=== PATIENT | female | born 1970 | race Caucasian/White ===

== ENCOUNTER 2019-06-16 12:26 | Emergency (ER) | payer OTHER, SELFPAY ==
[2019-06-16 12:32] VITALS: BP 117/81; PULSE 108; RESP 20; TEMP 36.5; O2SAT 99
--- NOTE | 2019-06-16 12:56 | ED.SKABFB ---
HPI - Skin/Abscess/Foreign Bdy General Chief complaint: Skin/Abscess/Foreign Body Stated complaint: Cellulitis Time Seen by Provider: 06/16/19 12:56 Source: patient Mode of arrival: ambulatory Limitations: no limitations History of Present Illness HPI narrative: Emma Dee is a 48 yo female with a PMH of ELEONORA, obesity, HTN, tobacco abuse, comes to express care with a rash over R eye - swelling came up yesterday, leaking clear fluid with tenderness on R jaw Related Data Home Medications Medication Instructions Recorded Confirmed duloxetine 60 mg PO DAILY 06/16/19 06/16/19 levothyroxine 125 mcg PO DAILY 06/16/19 06/16/19 phentermine 37.5 mg PO DAILY 06/16/19 06/16/19 valsartan-hydrochlorothiazide 1 tablet PO DAILY 06/16/19 06/16/19 Allergies Allergy/AdvReac Type Severity Reaction Status Date / Time No Known Allergies Allergy Verified 06/16/19 12:49 Review of Systems Review of Systems: Narrative: CONSTITUTIONAL: Denies fever, chills, sweats. EYES: Denies visual changes, redness, discharge. ENT: Denies rhinorrhea, congestion, sore throat, otalgia. CARDIOVASCULAR: Denies chest pain, palpitations, edema. RESPIRATORY: Denies dyspnea, wheezing, cough GASTROINTESTINAL: Denies abdominal pain, nausea, vomiting, diarrhea. GENITOURINARY: Denies dysuria, hematuria, abnormal discharge SKIN: Denies rash or itching. area of pain and swelling over R eye, R facial pain NEUROLOGIC: Denies numbness, or focal weakness. PSYCHIATRIC: Denies anxiety or depression. [facility] Family History Family History Mother Family history of arthritis Other Diabetes mellitus Family history of coronary artery disease Hypertension Malignant neoplasm of prostate Social History Social History Smoking status: Current every day smoker Alcohol intake: current Comments At time of signature, I agree with nursing past medical, surgical, social and family history. There is no relevant family history pertinent to the presenting complaint. Exam Narrative: Exam Narrative: GENERAL: This is a well-nourished, well-developed patient, in mild distress. HEAD: normocephalic, atraumatic. EYES: Sclera clear/white. Vision is grossly intact. EARS: External ears normal, auditory canals clear and without drainage, TMs normal without perforation. Hearing grossly intact. NOSE: External nose normal without nasal discharge, nares without redness, no rhinorrhea. THROAT: Mucous membranes moist, posterior pharynx NECK: Neck supple, non-tender CARDIOVASCULAR: Regular rate and rhythm without murmurs, gallops, or rubs. RESPIRATORY: Clear to auscultation. Breath sounds equal bilaterally. No wheezes, rales, or rhonchi. GASTROINTESTINAL: Abdomen soft, non-tender, SKIN: warm, intact with no suspicious lesions- swelling over R eye with swlling, pain at TMJ, pain with opening mouth NEURO: awake, alert, and oriented to person, place and time. There were no obvious focal neurologic abnormalities. Steady gait EXTREMITIES: Normal range of motion. BACK: Nontender without deformity Course Course Emergency Course: started on acyclovir and keflex- possible shingles vs cellulitis Vital Signs Vital signs: Vital Signs Temperature 97.7 F 06/16/19 12:32 Pulse Rate 108 H 06/16/19 12:32 Respiratory Rate 06/16/19 12:32 Blood Pressure 117/81 06/16/19 12:32 Pulse Oximetry 99 06/16/19 12:32 Temperature 97.7 F 06/16/19 12:32 Pulse Rate 108 H 06/16/19 12:32 Respiratory Rate 06/16/19 12:32 Blood Pressure 117/81 06/16/19 12:32 Pulse Oximetry 99 06/16/19 12:32 MDM - Skin/Abscess/Foreign Bdy Differential Diagnosis Differential diagnosis: Likely abscess of skin or subcutaneous tissue, urticaria, herpes zoster and other Discharge Plan Discharge Clinical Impression: Cellulitis Qualifiers: Site of cellulitis: face Qualified Code(s):
== END 2019-06-16 13:18 | disposition home or self-care (01) ==
PROVIDERS: Emergency Provider Nurse Practitioner; PCP Family Medicine
DX: L03.211 Cellulitis of face (principal); B02.9 Zoster without complications; E66.9 Obesity, unspecified; Z68.43 Body mass index [BMI] 50.0-59.9, adult; I10 Essential (primary) hypertension; F17.210 Nicotine dependence, cigarettes, uncomplicated
CPT/HCPCS: 99213; G0463

== ENCOUNTER 2021-01-29 10:21 | Emergency (ER) | payer OTHER, SELFPAY ==
--- NOTE | 2021-01-29 10:25 | ED.BACK ---
HPI - Back Pain/Injury General Chief Complaint: Urogenital-Female Stated Complaint: back pain Time Seen by Provider: 01/29/21 10:25 Source: patient and RN notes reviewed History of Present Illness HPI Narrative: Patient is a 50-year-old female who presents the urgent care with complaints of right-sided flank pain with dark urine. Patient states the flank pain started 4 days ago and she has noticed over the last 4 days the urine has became darker. Patient denies of any fever, chills, nausea, vomiting, abdominal pain. Patient has taken Tylenol. Denies of any known blood in the urine. No other acute complaints. No acute distress noted. Patient aware of the plan of care. Some parts of this dictation were generated by voice recognition software and may contain typographical and/or grammatical inaccuracies. Related Data Home Medications Medication Instructions Recorded Confirmed duloxetine 60 mg PO DAILY 06/16/19 01/29/21 levothyroxine 125 mcg PO DAILY 06/16/19 01/29/21 phentermine 37.5 mg PO DAILY 06/16/19 01/29/21 valsartan-hydrochlorothiazide 1 tablet PO DAILY 06/16/19 01/29/21 topiramate 50 mg PO DAILY 01/29/21 01/29/21 Allergies Allergy/AdvReac Type Severity Reaction Status Date / Time amoxicillin [From Augmentin] AdvReac Diarrhea Verified 01/29/21 10:40 clavulanic acid AdvReac Diarrhea Verified 01/29/21 10:40 [From Augmentin] Review of Systems Review of Systems: CONSTITUTIONAL: Denies fever, chills, or sweats. EYES: Denies visual changes, redness, or discharge. ENT: Denies rhinorrhea, congestion, sore throat, or otalgia. CARDIOVASCULAR: Denies chest pain, palpitations, or edema. RESPIRATORY: Denies cough or dyspnea. GASTROINTESTINAL: Denies abdominal pain, nausea, vomiting, or diarrhea. GENITOURINARY: Denies dysuria or hematuria. Reports of dark urine SKIN: Denies rash or itching. MUSCULOSKELETAL: Reports of right sided flank pain NEUROLOGIC: Denies headache, numbness, or weakness. All other systems reviewed are negative, except as documented in HPI. [facility] Family History Family History Mother Family history of arthritis Other Diabetes mellitus Family history of coronary artery disease Hypertension Malignant neoplasm of prostate Social History Social History Smoking status: Current every day smoker Alcohol intake: current Comments At the time of my signature, I reviewed and agree with the nursing past medical, surgical, social, and family history. There is no relevant family history pertinent to the patient complaint. Exam Narrative: GENERAL: This is a well-nourished, well-developed patient, in no apparent distress. HEAD: normocephalic, atraumatic. EYES: PERRL. Sclera clear/white. Vision is grossly intact. EARS: External ears normal NOSE: External nose normal with no obvious nasal discharge, nares without redness, no rhinorrhea. THROAT: Mucous membranes moist NECK: Neck supple CARDIOVASCULAR: Regular rate and rhythm without murmurs, gallops, or rubs. RESPIRATORY: Clear to auscultation. Breath sounds equal bilaterally. No wheezes, rales, or rhonchi. GASTROINTESTINAL: Abdomen soft, non-tender, nondistended. SKIN: warm, intact with no suspicious lesions or rash, good texture and turgor. NEURO: awake, alert, and oriented to person, place and time. There were no obvious focal neurologic abnormalities. EXTREMITIES: No clubbing, cyanosis, or edema. BACK: Mild right-sided CVA tenderness Course Vital Signs Vital signs: Vital Signs Temperature 97.7 F 01/29/21 10:29 Pulse Rate 101 H 01/29/21 10:29 Respiratory Rate 16 01/29/21 10:29 Blood Pressure 111/46 L 01/29/21 10:29 Pulse Oximetry 100 01/29/21 10:29 Temperature 97.7 F 01/29/21 10:36 Pulse Rate 101 H 01/29/21 10:36 Respiratory Rate 16 01/29/21 10:36 Blood Pressure 111/46 L 01/29/21 10:36 Pulse Oximet
[2021-01-29 10:29] VITALS: BP 111/46; PULSE 101; RESP 16; TEMP 36.5; O2SAT 100
[2021-01-29 10:36] VITALS: BP 111/46; PULSE 101; RESP 16; TEMP 36.5; O2SAT 100
== END 2021-01-29 11:18 | disposition home or self-care (01) ==
PROVIDERS: Emergency Provider Nurse Practitioner Family; PCP Family Medicine
DX: S39.012A Strain of muscle, fascia and tendon of lower back, initial encounter (principal); F17.210 Nicotine dependence, cigarettes, uncomplicated; X58.XXXA Exposure to other specified factors, initial encounter
CPT/HCPCS: 81003; 99213; G0463

== ENCOUNTER → 2021-07-25 10:18 | Outpatient (CLI) | payer OTHER, SELFPAY ==
--- NOTE | ~2021-07-25 | MM_ITS ---
EXAMINATION: MM screening [facility] BI w lori HISTORY: Screening mammogram TECHNIQUE: Craniocaudal and mediolateral oblique 3-D tomosynthesis images were obtained and synthetic 2-D images were generated. CAD analysis was submitted and interpreted. COMPARISON: 08/29/2015, 08/30/2013, 07/22/2012 BREAST PARENCHYMAL COMPOSITION: The breasts are almost entirely fatty. FINDINGS: There is no suspicious mass, calcification, or architectural distortion to suggest malignan cy in either breast. There has been no suspicious interval change. IMPRESSION: 1. No mammographic evidence of malignancy. 2. Recommend routine screening mammography in one year. BI-RADS Category 1: Negative Reviewed, dictated and finalized at location A.
== END ==
PROVIDERS: PCP Family Medicine; Visit Provider Advanced Practice Midwife
DX: Z12.31 Encounter for screening mammogram for malignant neoplasm of breast (principal)
CPT/HCPCS: 77063; 77067

== ENCOUNTER → 2022-08-28 10:45 | Outpatient (CLI) | payer OTHER, SELFPAY ==
--- NOTE | ~2022-08-28 | MM_ITS ---
EXAMINATION: MM screening [facility] BI w lori HISTORY: Screening mammogram TECHNIQUE: Craniocaudal and mediolateral oblique 3-D tomosynthesis images were obtained and synthetic 2-D images were generated. CAD analysis was submitted and interpreted. COMPARISON: 07/25/2021, 08/29/2015 bilateral screening mammogram examinations BREAST PARENCHYMAL COMPOSITION: The breasts are almost entirely fatty. FINDINGS: There is no evidence of suspicious mass, calcification, or architectural distortion to sugg est malignancy in either breast. There has been no suspicious interval change. IMPRESSION: 1. No mammographic evidence of malignancy. 2. Recommend routine screening mammography in one year. BI-RADS Category 1: Negative Reviewed, dictated and finalized at location A.
== END ==
PROVIDERS: PCP Advanced Practice Midwife; Visit Provider Advanced Practice Midwife
DX: Z12.31 Encounter for screening mammogram for malignant neoplasm of breast (principal)
CPT/HCPCS: 77063; 77067

== ENCOUNTER 2022-12-11 02:20 | Day surgery (SDC) | payer OTHER, SELFPAY ==
[2022-11-29 14:43] VITALS: BMI 42.9
[2022-12-11 07:25] VITALS: BP 114/70; PULSE 102; RESP 20; TEMP 36.5; O2SAT 97; BMI 45.3
[2022-12-11] MEDS: LACTATED RINGERS 1,000 ML 150 ML IV CONT (07:33)
--- NOTE | 2022-12-11 07:58 | PM.HPGS ---
History of Present Illness History of Present Illness Consent: Risks, benefits, and alternatives have been discussed and questions answered. Patient agrees to proceed with procedure. Chief complaint: neoploasm screening Narrative: Emma Dee is a 52 year old female referred for colon cancer screening Review of Systems Review of Systems: All systems reviewed & are unremarkable except as noted in HPI and below PMFSH Family History Family History Mother Family history of arthritis Other Diabetes mellitus Family history of coronary artery disease Hypertension Malignant neoplasm of prostate Social History Social History Smoking packs per day: 1 Smoking cigarettes per day: 20.0 Years smoked: 30 Smoking pack-years: 30.00 Smoking status: Current every day smoker Tobacco type: cigarettes Alcohol intake: unknown Substance use: never Substance use type: does not use Living arrangements: with family Spiritual care concerns: No Meds Home Medications and Allergies Home Medications Medication Instructions Recorded Confirmed Type duloxetine 60 mg capsule,delayed 60 mg PO DAILY 06/16/19 11/29/22 History release sprinkle levothyroxine 125 mcg tablet 125 mcg PO DAILY 06/16/19 11/29/22 History phentermine 37.5 mg tablet 37.5 mg PO DAILY 06/16/19 11/29/22 History valsartan 320 1 tablet PO DAILY 06/16/19 11/29/22 History mg-hydrochlorothiazide 25 mg tablet topiramate 50 mg tablet 50 mg PO DAILY 01/29/21 11/29/22 History Allergies Allergy/AdvReac Type Severity Reaction Status Date / Time amoxicillin [From Augmentin] AdvReac Diarrhea Verified 12/11/22 07:24 clavulanic acid AdvReac Diarrhea Verified 12/11/22 07:24 [From Augmentin] Vital Signs Vital Signs - 24 hr 12/11/22 07:25 Temperature 36.5 C Pulse Rate 102 H Respiratory Rate 20 Blood Pressure 114/70 Pulse Oximetry 97 Oxygen Delivery Room Air Exam Const: General: alert Orientation/consciousness: patient oriented x3 Resp: Auscultation: clear to auscultation bilaterally Cardio: Rhythm: regular rhythm GI: GI Palp: Yes Soft to palpation and No Tenderness to palpation present (GI) Neuro: General: patient oriented x3 Assessment and Plan Assessment and plan (1) Colon cancer screening: Code(s): Z12.11 - Encounter for screening for malignant neoplasm of colon Status: Acute Assessment and Plan: Colonoscopy with possible biopsy or polypectomy or cautery or injection of substances.
--- NOTE | 2022-12-11 07:58 | WPDANESEPPF ---
Anes - Initial Pre Proc Eval Procedure: Operation Date: 12/11/22 08:30 Proposed Procedures p Screening Colonoscopy - Christian Aceves MD Date/Time: 12/11/22 07:58 Surgeon: Christian Aceves MD Pre Op Diagnosis: neoploasm screening Patient Data Age: 52 Gender: F Height: 1.63 m Weight: 119.7 kg Last Vital Signs Temp 97.7 F 12/11/22 07:25 Pulse 102 H 12/11/22 07:25 Resp 20 12/11/22 07:25 BP 114/70 12/11/22 07:25 Pulse Ox 97 12/11/22 07:25 O2 Del Method Room Air 12/11/22 07:25 Allergies Allergy/AdvReac Type Severity Reaction Status Date / Time amoxicillin [From Augmentin] AdvReac Diarrhea Verified 12/11/22 07:24 clavulanic acid AdvReac Diarrhea Verified 12/11/22 07:24 [From Augmentin] Home Medications Medication Instructions Recorded Confirmed Type duloxetine 60 mg capsule,delayed 60 mg PO DAILY 06/16/19 11/29/22 History release sprinkle levothyroxine 125 mcg tablet 125 mcg PO DAILY 06/16/19 11/29/22 History phentermine 37.5 mg tablet 37.5 mg PO DAILY 06/16/19 11/29/22 History valsartan 320 1 tablet PO DAILY 06/16/19 11/29/22 History mg-hydrochlorothiazide 25 mg tablet topiramate 50 mg tablet 50 mg PO DAILY 01/29/21 11/29/22 History Patient hx anesthesia problems: none Family hx anesthesia problems: none Results Review: All pre-operative results and documents have been reviewed as part of the pre-operative evaluation. [facility] Family History Family History Mother Family history of arthritis Other Diabetes mellitus Family history of coronary artery disease Hypertension Malignant neoplasm of prostate Social History Social History Smoking packs per day: 1 Smoking cigarettes per day: 20.0 Years smoked: 30 Smoking pack-years: 30.00 Smoking status: Current every day smoker Tobacco type: cigarettes Alcohol intake: unknown Substance use: never Substance use type: does not use Living arrangements: with family Spiritual care concerns: No Anes - Eval Final PreProcedure Day of Procedure 12/11/22 07:58 Patient weight: morbidly obese Heart: regular rate and rhythm Lungs: clear to auscultation Airway: Mallampati scale class III Neurological: alert and oriented Last oral intake: >/= 8 hours ASA classification: III Emergent: no Anesthetic plan: proceed Anesthesia type and monitoring: general GIVS and standard monitoring Results Review: All pre-operative results and documents have been reviewed as part of the pre-operative evaluation. Informed Consent: The patient's anesthetic plan and its attendant risks and benefits were discussed with the patient/family/POA. Questions were solicited and answers provided to the satisfaction of the patient/family/POA.
[2022-12-11 08:44] VITALS: BP 88/54; PULSE 77; RESP 18; O2SAT 100
[2022-12-11 08:54] VITALS: BP 111/72; PULSE 78; RESP 20; O2SAT 100
[2022-12-11 09:04] VITALS: BP 128/75; PULSE 73; RESP 18; O2SAT 100
== END 2022-12-11 09:20 | disposition home or self-care (01) ==
PROVIDERS: PCP Family Medicine; Visit Provider Internal Medicine Gastroenterology
PROC: 0DJD8ZZ Inspection of Lower Intestinal Tract, Via Natural or Artificial Opening Endoscopic (ICD-10-PCS; CPT 45378; principal; 2022-12-11 08:30)
DX: Z12.11 Encounter for screening for malignant neoplasm of colon (principal); K57.30 Diverticulosis of large intestine without perforation or abscess without bleeding; D12.5 Benign neoplasm of sigmoid colon; F17.210 Nicotine dependence, cigarettes, uncomplicated; E66.01 Morbid (severe) obesity due to excess calories; Z68.42 Body mass index [BMI] 45.0-49.9, adult
CPT/HCPCS: 45381; 45385; 88305; J2704; J7120

== ENCOUNTER 2023-03-28 11:58 | Emergency (ER) | payer OTHER, SELFPAY ==
[2023-03-28 12:04] VITALS: BP 96/65; PULSE 92; RESP 16; TEMP 36.3; O2SAT 98
--- NOTE | 2023-03-28 12:13 | ED.URI ---
HPI - URI/Sore Throat General Chief Complaint: Upper Respiratory Infection Stated Complaint: Bronchitis symptoms Time Seen by Provider: 03/28/23 12:13 Source: patient Mode of arrival: ambulatory Limitations: no limitations History of Present Illness HPI Narrative: Patient is a 52-year-old female who presents with 3 days of cough, congestion and shortness of breath on exertion. Patient smokes half pack a day. Reports history of bronchitis. Has taken Mucinex with no relief. Denies any fever, chills, nausea, vomiting, diarrhea. Related Data Home Medications Medication Instructions Recorded Confirmed duloxetine 60 mg capsule,delayed 60 mg PO DAILY 06/16/19 03/28/23 release sprinkle levothyroxine 125 mcg tablet 125 mcg PO DAILY 06/16/19 03/28/23 valsartan 320 1 tablet PO DAILY 06/16/19 03/28/23 mg-hydrochlorothiazide 25 mg tablet topiramate 50 mg tablet 50 mg PO DAILY 01/29/21 03/28/23 Allergies Allergy/AdvReac Type Severity Reaction Status Date / Time amoxicillin [From Augmentin] AdvReac Diarrhea Verified 12/11/22 07:24 clavulanic acid AdvReac Diarrhea Verified 12/11/22 07:24 [From Augmentin] Review of Systems Review of Systems: All systems reviewed & are unremarkable except as noted in HPI and below Constitutional: Constitutional: Denies body ache(s), Denies chills, Denies fatigue, Denies fever(s), Denies headache(s), Denies malaise and Denies weakness Eyes: Eyes: Denies blurry vision, Denies itchy eyes and Denies loss of vision ENT: Denies otalgia, Denies headache(s), Reports nasal congestion, Denies sinus pain and Denies sore throat Cardiovascular: Cardiovascular: Denies chest pain, Denies irregular heart rhythm and Denies dyspnea Respiratory: Respiratory: Reports cough, Denies dyspnea and Reports dyspnea on exertion Gastrointestinal: Gastrointestinal: Denies abdominal pain, Denies diarrhea, Denies nausea and Denies vomiting Musculoskeletal: Musculoskeletal: Denies back pain, Denies myalgias and Denies arthralgias Integumentary/Breasts: Skin/Breast: Denies pruritus and Denies rash Neurologic: Denies headache(s), Denies loss of vision and Denies weakness Psychiatric: Psychiatric: Reports no additional psychiatric complaints Endocrine: Endocrine: Denies fatigue Allergic/Immunologic: Allergic/Immunologic: Denies itchy eyes PMFSH Family History Family History Mother Family history of arthritis Other Diabetes mellitus Family history of coronary artery disease Hypertension Malignant neoplasm of prostate Social History Social History Smoking packs per day: 1 Smoking cigarettes per day: 20.0 Years smoked: 30 Smoking pack-years: 30.00 Smoking status: Current every day smoker Tobacco type: cigarettes Alcohol intake: unknown Substance use: never Substance use type: does not use Living arrangements: with family Spiritual care concerns: No Comments At time of signature, agree with nursing past medical, surgical, social and family history. There is no relevant family history pertinent to the presenting complaint. Exam Const: General: cooperative, healthy appearing, comfortable, no acute distress and well nourished Nutritional Appearance: well nourished Orientation/consciousness: patient oriented x3 Limitations: no limitations HENMT: Head: normal to inspection, normocephalic and atraumatic Ears: hearing grossly normal bilaterally, external ears normal, TM's normal bilaterally, EAC's normal and no periauricular adenopathy Face/Nose/Sinus: Normal external nose present, Abnormal mucous membranes and turbinates present erythematous bilateral and diffuse, normal facial exam, sinuses nontender and face symmetric Face and sinus: normal facial exam, sinuses nontender and face symmetric Mouth: Yes Normal oral and palatal mucosa present, Yes lip normal, Yes tongue
== END 2023-03-28 13:26 | disposition home or self-care (01) ==
PROVIDERS: Emergency Provider Nurse Practitioner Family; PCP Family Medicine
DX: J20.9 Acute bronchitis, unspecified (principal); F17.210 Nicotine dependence, cigarettes, uncomplicated
CPT/HCPCS: 99213; G0463

== ENCOUNTER 2024-01-14 14:05 | Outpatient (CLI) | payer OTHER, SELFPAY ==
--- NOTE | ~2024-01-14 | MM_ITS ---
EXAMINATION: MM screening [facility] BI w lori HISTORY: Screening TECHNIQUE: Craniocaudal and mediolateral oblique 3-D tomosynthesis images were obtained and synthetic 2-D images were generated. CAD analysis was submitted and interpreted. COMPARISON: Comparison to multiple prior studies sequentially, with oldest reviewed study dated 08/28. BREAST PARENCHYMAL COMPOSITION: Not Dense: The breasts are almost entirely fatty. FINDINGS: There is no evidence of suspicious mass, calcification, or architectural distortion to sugg est malignancy in either breast. There has been no suspicious interval change. IMPRESSION: 1. No mammographic evidence of malignancy. 2. Recommend routine screening mammography in one year. BI-RADS Category 1: Negative Reviewed, dictated and finalized at location B. [employer]
== END 2024-01-14 14:06 | disposition home or self-care (01) ==
LOC: ANHIMG 14:07
PROVIDERS: PCP Family Medicine; Visit Provider Advanced Practice Midwife
DX: Z12.31 Encounter for screening mammogram for malignant neoplasm of breast (principal)
CPT/HCPCS: 77063; 77067

== ENCOUNTER 2025-01-19 08:00 | Outpatient (CLI) | payer OTHER, SELFPAY ==
--- NOTE | ~2025-01-19 | MM_ITS ---
EXAMINATION: MM screening dung BI w lori HISTORY: Screening. TECHNIQUE: Craniocaudal and mediolateral oblique 3-D tomosynthesis images were obtained and synthetic 2-D images were generated. CAD analysis was submitted and interpreted. COMPARISON: 2023, 2022, and 2021 BREAST PARENCHYMAL COMPOSITION: Not Dense: The breasts are almost entirely fatty FINDINGS: No suspicious masses are seen. There are no suspicious calcifications. No unexplained architectural distortion is seen. There are no skin or nipple abnormalities identified. There is no adenopathy seen on the images submitted. IMPRESSION: No mammographic evidence to suggest malignancy is seen. The patient may return to screening mammography as per ACR guidelines. BI-RADS 1 - Negative. Reviewed, dictated and finalized at location B. [facility]
--- OUTSIDE RECORDS SUMMARY | 2025-01-19 08:10 | XMS_ITS | Clinical Summary ---
Author Organization [facility] Address [address] [place] [id number] Care Team Providers Care Plaster Block Layer Name Role Phone Winsome Valencia NP Primary Care Provider [phone] Allergies No known active allergies Encounters Date Type Department Care Team Description 01/06/2025 2:44 PM TECHNICAL APPLICATIONS SPECIALIST - 01/06/2025 4:42 PM TECHNICAL APPLICATIONS SPECIALIST Emergency [facility] [address] [place] [id number] Wellness examination (Primary Dx) Discharge Disposition: Discharge to home or self care from Last 3 Months Social History Tobacco Use Types Packs/Day Years Used Date Smoking Tobacco: Never Assessed Personal Safety Answer Date Recorded Have you ever been in or are you currently in a harmful physical or emotional relationship or is someone making you feel afraid or unsafe? Denies 01/06/2025 Comments Unknown Sex and Gender Information Value Date Recorded Sex Assigned at Not on file Legal Sex Female 2:54 PM TECHNICAL APPLICATIONS SPECIALIST Gender Identity Not on file Sexual Orientation Not on file Last Filed Vital Signs Vital Sign Reading Time Taken Comments Blood Pressure 110/97 01/06/2025 2:49 PM TECHNICAL APPLICATIONS SPECIALIST Pulse 86 01/06/2025 2:49 PM TECHNICAL APPLICATIONS SPECIALIST Temperature 36.6 C (97.9 F) 01/06/2025 2:49 PM TECHNICAL APPLICATIONS SPECIALIST Respiratory Rate 18 01/06/2025 2:49 PM TECHNICAL APPLICATIONS SPECIALIST Oxygen Saturation 100% 01/06/2025 2:49 PM TECHNICAL APPLICATIONS SPECIALIST Inhaled Oxygen Concentration - - Weight 122.6 kg (270 lb 4.5 oz) 01/06/2025 2:49 PM TECHNICAL APPLICATIONS SPECIALIST Height 162.6 cm (5' 4) 01/06/2025 2:49 PM TECHNICAL APPLICATIONS SPECIALIST Body Mass Index 46.39 01/06/2025 2:49 PM TECHNICAL APPLICATIONS SPECIALIST Plan of Treatment Not on file Procedures Procedure Name Priority Date/Time Associated Diagnosis Comments ECG 12-LEAD Routine 01/06/2025 3:09 PM TECHNICAL APPLICATIONS SPECIALIST EGFR STAT 01/06/2025 2:55 PM TECHNICAL APPLICATIONS SPECIALIST DIFFERENTIAL AUTO STAT 01/06/2025 2:5 5 PM TECHNICAL APPLICATIONS SPECIALIST COMPREHENSIVE METABOLIC PANEL STAT 01/06/2025 2:55 PM TECHNICAL APPLICATIONS SPECIALIST CBC WITH AUTO DIFFERENTIAL STAT 01/06/2025 2:55 PM TECHNICAL APPLICATIONS SPECIALIST from Last 3 Months Results * ECG 12 lead (01/06/2025 3:09 PM TECHNICAL APPLICATIONS SPECIALIST) Pathologist [facility] Ventricular Rate EKG/Min 82 BPM [facility] Atrial Rate 82 BPM [facility] IA-Interval (MSEC) 180 ms [facility] QRS-Interval (MSEC) 74 ms [facility] QT-Interval (MSEC) 342 ms [facility] QTc 399 ms [facility] P [place] 44 degrees [facility] R [place] 26 degrees [facility] T [place] 30 degrees [facility] Diagnosis Normal sinus rhythm Low voltage QRS Borderline ECG No previous ECGs available Confirmed by JOHN LEHMAN M.D. ([id number]) on 01/06/2025 3:31:26 PM [facility] 01/06/2025 3:09 PM TECHNICAL APPLICATIONS SPECIALIST 01/06/2025 3:31 PM TECHNICAL APPLICATIONS SPECIALIST us Kaley SWEET ECG ORDERABLES Final Result [facility] * eGFR (01/06/2025 2:55 PM TECHNICAL APPLICATIONS SPECIALIST) Pathologist [facility] eGFR 67 >=60 mL/min/1. 73 m2 Comment: Interpretive Data Reference Interval Normal >/= 90 mL/min/1.73m2 Mildly decreased* 60 - 89 mL/min/1.73m2 Mildly to moderately decreased 45 - 59 mL/min/1.73m2 Moderately to severely decreased 30 - 44 mL/min/1.73m2 Severely decreased 15 - 29 mL/min/1.73m2 Kidney Failure < 15 mL/min/1.73m2 *Relative to young adult level Estimated glomerular filtration rate is determined by the 2020 CKD-EPI equation recommended by the National Kidney Foundation (A Unifying Approach to GFR Estimation: Recommendations of the NKF-ASK Task Force on Reassessing the Inclusion of Race in Diagnosing Kidney Disease, JASN 2020). The CKD-EPI equation should not be used for patients with unstable renal function and has not been validated in children and those over 70. Current interpretive data was last reviewed 2020. Testing performed by: [address] [address] Blood 01/06/2025 2:55 PM TECHNICAL APPLICATIONS SPECIALIST 01/06/2025 3:07 PM TECHNICAL APPLICATIONS SPECIALIST us Kaley SWEET LAB BLOOD ORDERABLES Final R esult JESSICA [address] [facility] Department [place] [address] * (ABNORMAL) Differential, auto (01/06/2025 2:55 PM TECHNICAL APPLICATIONS SPECIALIST) Neutrophil abs 7.58(H) 1.50 - 6.50 K/cumm Comment:Testing performed by : [address] [address] Imm gran abs 0.03 0.00 - 0.10 K/cumm JESSICA Comment:Testing performed by : [address] [address] Lymphocyte abs 2.34 0.80 - 3.30 K/cumm JESSICA Comment:Testing performed by : [address] [address] Monocyte abs 0.73 0.20 - 0.80 K/cumm JESSICA Comment:Testing performed by : [address] [address] Eosinophil abs 0.38 0.00 - 0.50 K/cumm JESSICA Comment:Testing performed by : [address] [address] Basophil abs 0.08 0.00 - 0.10 K/cumm JESSICA Comment:Testing performed by : [address] [address] Neutrophil pct 68.0 % [facility] Comment: Interpretive Data Percent cell count reference ranges are not reported, since discordance with absolute values may lead to misinterpretation of CBC data. Current Interpretive Data was last revised on 2017. Testing performed by: [address] [address] Imm gran pct 0.3 % [facility] Comment: Interpretive Data Percent cell count reference ranges are not reported, since discordance with absolute values may lead to misinterpretation of CBC data. Current Interpretive Data was last revised on 2017. Testing performed by: [address] [address] Lymphocyte pct 21.0 % [facility] Comment: Interpretive Data Percent cell count reference ranges are not reported, since discordance with absolute values may lead to misinterpretation of CBC data. Current Interpretive Data was last revised on 2017. Testing performed by: [address] [address] Monocyte pct 6.6 % [facility] Comment: Interpretive Data Percent cell count reference ranges are not reported, since discordance with absolute values may lead to misinterpretation of CBC data. Current Interpretive Data was last revised on 2017. Testing performed by: [address] [address] Eosinophil pct 3.4 % [facility] Comment: Interpretive Data Percent cell count reference ranges are not reported, since discordance with absolute values may lead to misinterpretation of CBC data. Current Interpretive Data was last revised on 2017. Testing performed by: [address] [address] Basophil pct 0.7 % [facility] Comment: Interpretive Data Percent cell count reference ranges are not reported, since discordance with absolute values may lead to misinterpretation of CBC data. Current Interpretive Data was last revised on 2017. Testing performed by: [address] [address] Blood 01/06/2025 2:55 PM TECHNICAL APPLICATIONS SPECIALIST 01/06/2025 3:07 PM TECHNICAL APPLICATIONS SPECIALIST us Kaley SWEET LAB BLOOD ORDERABLES Final R esult JESSICA [address] [facility] Department [place] [address] * (ABNORMAL) CBC with auto differential (01/06/2025 2:55 PM TECHNICAL APPLICATIONS SPECIALIST) WBC 11.14(H) 3.80 - 9.90 K/cumm Comment:Testing performed by : [address] [address] Hgb 14.6 11.9 - 15.5 g/dL JESSICA Comment:Testing performed by : [address] [address] Hct 44.8 35.6 - 45.5 % JESSICA Comment:Testing performed by : [address] [address] Plt 255 150 - 400 K/cumm JESSICA Comment:Testing performed by : [address] [address] MPV 10.6 9.1 - 12.3 fL JESSICA Comment:Testing performed by : [address] [address] RBC 5.19 3.90 - 5.20 M/cumm JESSICA Comment:Testing performed by : [address] [address] MCV 86.3 81.3 - 96.4 fL JESSICA Comment:Testing performed by : [address] [address] MCH 28.1 27.1 - 33.3 pg JESSICA SORTO Comment:Testing performed by : [address] [address] MCHC 32.6 32.3 - 35.7 g/dL JESSICA SORTO Comment:Testing performed by : [address] [address] RDW CV 13.8 11.1 - 14.9 % JESSICA Comment:Testing performed by : [address] [address] RDW SD 43.3 35.7 - 48.1 fL JESSICA SORTO Comment:Testing performed by : [address] [address] NRBC abs 0.00 0.00 - 0.01 K/cumm JESSICA SORTO Comment:Testing performed by : [address] [address] Blood 01/06/2025 2:55 PM TECHNICAL APPLICATIONS SPECIALIST 01/06/2025 3:07 PM TECHNICAL APPLICATIONS SPECIALIST us Kaley SWEET LAB BLOOD ORDERABLES Final R esult Performing Organization Address City/State/RUST Co de Phone Number JESSICA [address] [facility] Department [place] [address] * Comprehensive metabolic panel (01/06/2025 2:55 PM TECHNICAL APPLICATIONS SPECIALIST) Sodium 137 135 - 145 mmol/L Comment:Testing performed by : [address] [address] Potassium, pl 3.8 3.3 - 4.9 mmol/L JESSICA Comment:Testing performed by : [address] [address] Chloride 99 97 - 110 mmol/L JESSICA Comment:Testing performed by : [address] [address] CO2 25 22 - 32 mmol/L JESSICA Comment:Testing performed by : [address] [address] Anion gap 13 2 - 15 mmol/L JESSICA Comment:Testing performed by : [address] [address] BUN 11 6 - 25 mg/dL JESSICA Comment:Testing performed by : [address] [address] Creatinine 1.00 0.60 - 1.10 mg/dL JESSICA SORTO Comment:Testing performed by : [address] [address] Glucose 108 70 - 199 mg/dL JESSICA Comment: Interpretive Data Fasting glucose >/= 126 mg/dl is diagnostic for diabetes. Fasting is defined as no caloric intake for at least 8 hours. Fasting glucose between 100 mg/dl to 125 mg/dl is diagnostic of prediabetes. In a patient with classic symptoms of hyperglycemia or hyperglycemic crisis, a random glucose >/= 200 mg/dl is diagnostic for diabetes. In the absence of unequivocal hyperglycemia, results should be confirmed by repeat testing. The classification and Diagnosis of Diabetes Diabetes Care 2021; 46: S19-S40. Current interpretive data was last revised 2022. Testing performed by: [address] [address] Calcium 9.5 8.5 - 10.3 mg/dL JESSICA Comment:Testing performed by : [address] [address] Bilirubin, total 0.3 0.1 - 1.2 mg/dL JESSICA Comment:Testing performed by : [address] [address] Protein, pl 6.8 6.5 - 8.5 g/dL JESSICA Comment:Testing performed by : [address] [address] Albumin 3.8 3.5 - 5.0 g/dL JESSICA Comment:Testing performed by : [address] [address] Alk phos 103 40 - 130 Units/L JESSICA Comment:Testing performed by : [address] [address] ALT 8 7 - 45 Units/L JESSICA Comment:Testing performed by : [address] [address] AST 12 10 - 45 Units/L JESSICA Comment:Testing performed by : [address] [address] Blood 01/06/2025 2:55 PM TECHNICAL APPLICATIONS SPECIALIST 01/06/2025 3:07 PM TECHNICAL APPLICATIONS SPECIALIST us Kaley SWEET LAB BLOOD ORDERABLES Final R esult JESSICA [address] [facility] Department [place] [address] from Last 3 Months Insurance [facility] [employer] [place] Care Teams Plaster Block Layer Relationship Specialty Start Date End Date Winsome Valencia NP [address] [place] [address] [place] [address] PCP - General Family Medicine 01/06/25
--- OUTSIDE RECORDS SUMMARY | 2025-01-19 08:10 | XMS_ITS | Clinical Summary ---
Author Organization [facility] Address [address] [address] Care Team Providers Care Auto Service Instructor Name Role Phone Winsome Lux MD Primary Care Provider [phone] Source Comments [facility],non-owned Affiliates and Associated Physician Practices is amultiple site organization consisting of ambulatory clinics and hospital sitesin [place], [place], [place] and [place]. This disclosure is being madepursuant to the Care Everywhere program and may not contain all information available regarding this patient. Last updated 17.[facility] [employer] Allergies No known active allergies Medications * Be aware that medications may not be up to date on this document. Alwaysverify current medications with the patient. LEVOTHYROXINE SODIUM PO Active DULoxetine (CYMBALTA) 60 MG capsule Take 60 mg by mouth once daily Active Cholecalciferol (VITAMIN D PO) Activ e valsartan-hydro CHLOROthiazide (DIOVAN HCT) 160-25 MG tablet Take 1 tablet by mouth once daily Active phentermine (ADIPEX-P) 37.5 MG capsule Take 37.5 mg by mouth daily before breakfast Active Social History Tobacco Use Types Packs/Day Years Used Date Smoking Tobacco: Every Day Smokeless Tobacco: Never Comments No Sex and Gender Information Value Date Recorded Sex Assigned at Not on file Legal Sex Female 9:13 AM CDT Gender Identity Not on file Sexual Orientation Not on file Last Filed Vital Signs Vital Sign Reading Time Taken Comments Blood Pressure 130/80 01/10/2020 7:00 PM INHALATION THERAPIST Pulse 78 01/10/2020 7:00 PM INHALATION THERAPIST Temperature 36.8 C (98.3 F) 01/10/2020 7:00 PM INHALATION THERAPIST Respiratory Rate 18 01/10/2020 7:00 PM INHALATION THERAPIST Oxygen Saturation 98% 01/10/2020 7:00 PM INHALATION THERAPIST Inhaled Oxygen Concentration - - Weight 131.5 kg (290 lb) 01/10/2020 7:00 PM INHALATION THERAPIST Height 162.6 cm (5' 4) 01/10/2020 7:00 PM INHALATION THERAPIST Body Mass Index 49.78 01/10/2020 7:00 PM INHALATION THERAPIST Plan of Treatment Health Maintenance Due Date Last Done Comments COLOGUARD (AGES 45-75) - COL ON CA SCREENING 1971 COLON MONITORING 1971 COLONOSCOPY - COLON CA SCREENING 1971 CT COLONOGRAPHY - COLON CA SCREENING 1971 Colorectal Cancer Screening 1971 FIT - COLON CA SCREENING 1971 FLEX SIG - COLON CA SCREENING 1971 LIPID TESTING 1971 MAMMOGRAM 1971 HIV SCREENING 09/25/1986 HEPATITIS C SCREENING 09/21/1989 DTAP/TDAP/TD VACCINES (1 - Tdap) 09/25/1990 HEPATITIS B VACCINE (1 of 3 - 19+ 3-dose series) 09/25/1990 PNEUMOCOCCAL VACCINE 50+ (1 of 2 - PCV) 09/25/1990 Cervical Cancer Screening 09/25/1992 PAP SMEAR 09/25/1992 PAP with HPV 09/25/2001 SCREENING FOR DIABETES 10/11/2018 ZOSTER VACCINE (1 of 2) 09/25/2021 DEPRESSION SCREENING 02/18/2024 COVID-19 VACCINE (1 - 2024-2 6 season) 2024 INFLUENZA VACCINE (#1) 2024 03/04/2012 HIB VACCINE Aged Out No longer eligi ble based on patient's age to complete this topic HPV VACCINE Aged Out No longer eligi ble based on patient's age to complete this topic MENINGOCOCCAL (Group B) VACC INE SHARED DECISION-MAKING Aged Out No longer eligibl e based on patient's age to complete this topic MENINGOCOCCAL GROUPS A/C/Y/W VACCINE Aged Out No longer eligible b ased on patient's age to complete this topic Insurance [facility] Care Teams Auto Service Instructor Relationship Specialty Start Date End Date Winsome Lux MD [address] [place] [address] PCP - General Family Medicine 10/11/18
--- OUTSIDE RECORDS SUMMARY | 2025-01-19 08:10 | XMS_ITS | Encounter Summary ---
Author Organization [facility] Address [address] [facility] [place] [address] Care Team Providers Care Knapsack Sprayer Name Role Phone Winsome Lux MD Primary Care Provider [phone] Encounter Details Date Type Department Care Team (Late st Contact Info) Description 09/24/2018 Lab Requisition [facility] D[facility] Lab [address] [facility] [place] [address] Kyung Arciniega DO [address] [facility] [address] [place] [address] Social History Tobacco Use Types Packs/Day Years Used Date Smoking Tobacco: Never Assessed Comments Unknown Sex and Gender Information Value Date Recorded Sex Assigned at Not on file Legal Sex Female 9:13 AM CDT Gender Identity Not on file Sexual Orientation Not on file documented as of this encounter Plan of Treatment Not on file documented as of this encounter Procedures Procedure Name Priority Date/Time Associated Diagnosis Comments DERMATOPATHOLOGY Routine 09/23/2018 12:0 0 AM CDT documented in this encounter Results * DERMATOPATHOLOGY (09/23/2018 12:00 AM CDT) Case Report Dermatopathology Report Case: [id number] Authorizing Provider: Kyung Arciniega DO Collected: 09/23/2018 12:00 AM Pathologist: Giselle Dinh MD Received: 09/24/2018 06:28 AM Specimen: Skin, right cheek 9 1:13 PM CDT DERMATOPATHOLOGY LABORATORY Final Diagnosis Specimen A. SKIN, right cheek: EPIDERMOID CYST, FRAGMENTS OF (L72.0) 1:13 PM CDT DERMATOPATHOLOGY LABORATORY at 1313 CDT Clinical History R/O cyst. 1:13 PM CDT DERMATOPATHOLOGY LABORATORY Gross Description Specimen A: Received is one formalin filled container labeled with the patient's name and designated right cheek. The specimen consists of a scissor excision (3 pieces) measuring [id number], [id number], & [id number]. Jar 0. 1:13 PM CDT DERMATOPATHOLOGY LABORATORY Microscopic Description Specimen A. SKIN, right cheek: Sections show multiple portions of epithelium with a granular layer. There are also portions of keratin, predominantly in a basket-woven configuration. 1:13 PM CDT DERMATOPATHOLOGY LABORATORY Disclaimer An external and internal positive and negative controls are appropriate for the histochemical, immunohistochemical and immunofluorescence stain(s) in this case (if any), except where stated explicitly. The performance characteristics of the stain(s) cited in this report were developed and its performance characteristic determined by the Dermatopathology Laboratory at [facility], directed by Dr. Ace De Leon. These tests need not be, and therefore are not, approved by the [place] Food and Drug Administration. The tests are used for clinical purposes. Billing Codes Specimen Charges Stain Charges 32765 1 1:13 PM CDT DERMATOPATHOLOGY LABORATORY Embedded Images 1:13 PM CDT DERMATOPATHOLOGY LABORATORY Pathology/Cytolog y TISSUE SPECIMEN FROM SKIN / Unknown 09/23/2018 09/24/2018 6:28 AM CDT us Kyung Arciniega DO LAB - PATHOLOGY/CYTOLOGY ORDERABLES Final Result DERMATOPATHOLOGY LABORATORY [facility] - Department of Dermatology [address] [facility]th [place] [address], [facility] [phone] documented in this encounter Visit Diagnoses Not on filedocumented in this encounter Care Teams Knapsack Sprayer Relationship Specialty Start Date End Date Winsome Lux MD [address] [place] [address] PCP - General Family Medicine 10/11/18 documented as of this encounter
--- OUTSIDE RECORDS SUMMARY | 2025-01-19 08:10 | XMS_ITS | Encounter Summary ---
Author Organization [facility] Address [address] [facility] [place] [address] Care Team Providers Care Senior Net Developer Name Role Phone Winsome Lux MD Primary Care Provider [phone] Encounter Details Date Type Department Care Team (Late st Contact Info) Description 12/02/2019 Lab Requisition [facility] DermPath Lab [address] [facility] [place] [address] Ashley Rodriguez MD [address] [facility] [address] [place] [address] Social History Tobacco Use Types Packs/Day Years [...] Priority Date/Time Associated Diagnosis Comments DERMATOPATHOLOGY Routine 12/01/2019 12:0 0 AM CDT documented in this encounter Results * DERMATOPATHOLOGY (12/01/2019 12:00 AM CDT) Case Report Dermatopathology Report Case: [id number] Authorizing Provider: Ashley Rodriguez MD Collected: 12/01/2019 12:00 AM Ordering Location: [facility] DermPath Lab Received: 12/02/2019 09:43 AM Pathologist: Adelina Esparza MD Specimen: Skin, left cheek 0 5:23 PM CDT DERMATOPATHOLOGY LABORATORY Final Diagnosis Specimen A. SKIN, left cheek: SQUAMOUS PROLIFERATION (D48.5) (see microscopic description and comment) 0 5:23 PM CDT DERMATOPATHOLOGY LABORATORY at 1723 CDT Clinical History R/O SK vs other 0 5:23 PM CDT DERMATOPATHOLOGY LABORATORY Gross Description Specimen A: Received is one formalin filled container labeled with the patient's name and designated left cheek. The specimen consists of a shave biopsy measuring 7x6x2 mm. Jar 0. 0 5:23 PM CDT DERMATOPATHOLOGY LABORATORY Microscopic Description Specimen A. SKIN, left cheek: Sections show maturational disarray and nuclear pleomorphism of keratinocytes extending throughout the full thickness of the specimen. There is focal parakeratosis. The base of this lesion is not visualized. 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 Additional deeper sections were obtained and reviewed. This case was also reviewed by Dr. Ezra De Leon, who agrees. 0 5:23 PM CDT DERMATOPATHOLOGY LABORATORY Disclaimer An external and internal positive and negative controls are appropriate for the histochemical, immunohistochemical and immunofluorescence stain(s) in this case (if any), except where stated explicitly. The performance characteristics of the stain(s) cited in this report were developed and its performance characteristic determined by the Dermatopathology Laboratory at [facility], directed by Dr. Ace De Leon. These tests need not be, and therefore are not, approved by the [place] Food and Drug Administration. The tests are used for clinical purposes. Billing Codes Specimen Charges Stain Charges 99460 1 0 5:23 PM CDT DERMATOPATHOLOGY LABORATORY Embedded Images 0 5:23 PM CDT DERMATOPATHOLOGY LABORATORY Pathology/Cytolog y TISSUE SPECIMEN FROM SKIN / Unknown 12/01/2019 12/02/2019 9:43 AM CDT us Ashley Rodriguez MD LAB - PATHOLOGY/CYTOLOGY OR DERABLES Final Result DERMATOPATHOLOGY LABORATORY [facility] - Department of Dermatology [address] Floor [place], [place] [address] [place] [address] documented in this encounter Visit Diagnoses Not on filedocumented in this encounter Care Teams Senior Net Developer Relationship Specialty Start Date End Date Winsome Lux MD [address] [place] [address] PCP - General Family Medicine 10/11/18 documented as of this encounter
== END 2025-01-19 08:01 | disposition home or self-care (01) ==
LOC: ANHFOHIMG 08:04
PROVIDERS: PCP Family Medicine; Visit Provider Advanced Practice Midwife
DX: Z12.31 Encounter for screening mammogram for malignant neoplasm of breast (principal)
CPT/HCPCS: 77063; 77067